=== PATIENT | female | born 1955 | race Caucasian/White ===

== ENCOUNTER → 2017-02-13 | Outpatient (CLI) | payer OTHER ==
[2017-02-13 15:33] LABS: ALBUMIN 3.5 GM/DL (3.2-5.2); ALKALINE PHOSPHATASE 77 U/L (45-117); ALT/SGPT 62 U/L (12-78); ANION GAP 7 MEQ/L (8-16); AST/SGOT 28 U/L (15-37); BILIRUBIN,TOTAL 0.7 MG/DL (0.2-1.0); BLOOD UREA NITROGEN 19 MG/DL (7-18); CALCIUM LEVEL 8.5 MG/DL (8.8-10.2); CARBON DIOXIDE LEVEL 26 MEQ/L (21-32); CHLORIDE LEVEL 107 MEQ/L (98-107); CHOLESTEROL LEVEL 207 MG/DL (<200); CREATININE FOR GFR 0.88 MG/DL (0.55-1.02); GLOMERULAR FILTRATION RATE > 60.0 (>45); GLUCOSE, FASTING 106 MG/DL (80-110); POTASSIUM SERUM 4.4 MEQ/L (3.5-5.1); SODIUM LEVEL 140 MEQ/L (136-145); TRIGLYCERIDES LEVEL 60 MG/DL (<150)
== END ==
LOC: M WUC 08:56
PROVIDERS: ATTEND Emergency Medicine
DX: Z00.00 Encounter for general adult medical examination without abnormal findings (principal); E78.2 Mixed hyperlipidemia

== ENCOUNTER 2017-10-17 09:04 | Day surgery (SDC) | payer OTHER ==
[2017-10-17] MEDS: LR 1,000 ML IV ×3 (10:00→16:30)
[2017-10-17] MEDS ORDERED: GLYCOPYRROLATE INJ 0.2 MG/ML 2 ML VIAL As Ordered (11:13)
[2017-10-17] MEDS ORDERED: NEOSTIGMINE 10 MG/10 ML VIAL (J2710) As Ordered (11:13)
[2017-10-17] MEDS ORDERED: LIDOCAINE 2% INJ 100 MG/5 ML SDV (FOR ANES.) As Ordered (11:13)
[2017-10-17] MEDS ORDERED: ONDANSETRON 4MG/2ML VIAL (J2405) As Ordered ×2 (11:13→16:15)
[2017-10-17] MEDS ORDERED: LIDOCAINE 2% JELLY 30 ML As Ordered (11:13)
[2017-10-17] MEDS ORDERED: ROCURONIUM BROMIDE 50 MG/5 ML VIAL As Ordered (11:13)
[2017-10-17] MEDS ORDERED: KETOROLAC 60 MG/2 ML VIAL (J1885) As Ordered (11:13)
[2017-10-17] MEDS ORDERED: PROPOFOL 200 MG/20 ML VIAL As Ordered (11:13)
[2017-10-17] MEDS ORDERED: dexameTHASONE 4 MG/ML 1ML VIAL (J1100) As Ordered (11:13)
[2017-10-17] MEDS ORDERED: MIDAZOLAM INJ 2 MG/2 ML VIAL (J2250) As Ordered (11:14)
[2017-10-17] MEDS ORDERED: fentaNYL 100 MCG/2 ML INJECTION (J3010) As Ordered ×2 (11:14→13:47)
[2017-10-17] MEDS ORDERED: LABETALOL HCL 100 MG/20 ML VIAL As Ordered (13:29)
[2017-10-17] MEDS ORDERED: HYDROmorphone HCL 2 MG/ML 1ML VIAL (J1170) As Ordered (14:39)
[2017-10-17] MEDS: BUPIVACAINE HCL 0.5% 10 ML VIAL As Ordered (15:40)
[2017-10-17] MEDS: ONDANSETRON 4MG/2ML VIAL (J2405) IV (16:21)
[2017-10-17] MEDS ORDERED: fentaNYL 100 MCG/2 ML INJECTION (J3010) IV (16:30)
[2017-10-17] MEDS ORDERED: HYDROmorphone HCL 1 MG/ML SYRINGE (J1170) IV (16:30)
[2017-10-17] MEDS ORDERED: PERCOCET 5MG/325MG TAB PO (16:30)
[2017-10-17] MEDS: PERCOCET 5MG/325MG TAB PO (23:29)
[2017-10-18] MEDS: LR 1,000 ML IV ×2 (04:23→13:23)
[2017-10-18] MEDS: PERCOCET 5MG/325MG TAB PO ×3 (06:10→17:10)
== END 2017-10-18 18:55 | disposition home or self-care (01) ==
LOC: M SDC 10-18 18:55 → M MSPAV 18:41
DX: M20.41 Other hammer toe(s) (acquired), right foot (principal); M77.41 Metatarsalgia, right foot; K21.9 Gastro-esophageal reflux disease without esophagitis; R06.83 Snoring; Z79.899 Other long term (current) drug therapy; Z79.82 Long term (current) use of aspirin; Z78.0 Asymptomatic menopausal state
CPT/HCPCS: 28285

== ENCOUNTER → 2018-01-16 | Outpatient (CLI) | payer OTHER ==
[2018-01-16 19:46] LABS: HEMATOCRIT 41.8 % (36.0-47.0); MEAN CORPUSCULAR HEMOGLOBIN 29.4 pg (27.0-33.0); MEAN CORPUSCULAR HGB CONC 33.5 g/dl (32.0-36.5); MEAN CORPUSCULAR VOLUME 87.6 fl (80.0-96.0); PLATELET COUNT, AUTOMATED 285 10^3/uL (150-450); RED BLOOD COUNT 4.77 10^6/uL (4.00-5.40); RED CELL DISTRIBUTION WIDTH 12.7 % (11.5-14.5)
[2018-01-16 20:14] LABS: C REACTIVE PROTEIN QUANTITATIV 0.67 MG/DL (0.00-0.30)
[2018-01-16 21:15] LABS: ERYTHROCYTE SEDIMENTATION RATE 6 mm/hr (0-30)
== END ==
LOC: M WUC 17:10
DX: Z47.89 Encounter for other orthopedic aftercare (principal)
CPT/HCPCS: 86140

== ENCOUNTER → 2018-04-03 | Outpatient (CLI) | payer OTHER ==
[2018-04-03 13:28] LABS: ALKALINE PHOSPHATASE 90 U/L (45-117); ALT/SGPT 65 U/L (12-78); ANION GAP 9 MEQ/L (8-16); AST/SGOT 27 U/L (7-37); BLOOD UREA NITROGEN 14 MG/DL (7-18); CALCIUM LEVEL 8.6 MG/DL (8.8-10.2); CARBON DIOXIDE LEVEL 25 MEQ/L (21-32); CHLORIDE LEVEL 107 MEQ/L (98-107); CREATININE FOR GFR 0.75 MG/DL (0.55-1.30); GLOMERULAR FILTRATION RATE > 60.0 (>45); GLUCOSE, FASTING 113 MG/DL (70-100); POTASSIUM SERUM 4.3 MEQ/L (3.5-5.1); SODIUM LEVEL 141 MEQ/L (136-145)
[2018-04-03 13:29] LABS: ALBUMIN 3.7 GM/DL (3.2-5.2); ALBUMIN/GLOBULIN RATIO 1.03 (1.00-1.93); BILIRUBIN,TOTAL 0.7 MG/DL (0.2-1.0); CHOLESTEROL LEVEL 208 MG/DL (<200); CHOLESTEROL RISK RATIO 3.525 (<5); HDL CHOLESTEROL 59 MG/DL (>40); LDL CHOLESTEROL 131.8 MG/DL (<100); NON-HDL-C 149 MG/DL; TOTAL PROTEIN 7.3 GM/DL (6.4-8.2); TRIGLYCERIDES LEVEL 86 MG/DL (<150)
== END ==
LOC: M WUC 10:10
DX: E78.2 Mixed hyperlipidemia (principal); E66.01 Morbid (severe) obesity due to excess calories
CPT/HCPCS: 84443

== ENCOUNTER → 2019-10-05 | Outpatient (CLI) | payer MEDICARE, OTHER ==
[~2019-10-05] MED LIST: ASPI81TA26 PO; BUPR15TA PO; CALC500T49 PO; MEGA1CAP3 PO; PANT40TA3 PO
[2019-10-05 19:04] LABS: BASO % 0.7 % (0.0-1.0); EOS # 0.1 10^3/uL (0.0-0.5); EOS % 1.7 % (0.0-3.0); HEMATOCRIT 44.3 % (36.0-47.0); HEMOGLOBIN 14.5 g/dl (12.0-15.5); LYMPH # 1.5 10^3/uL (1.5-5.0); LYMPH % 26.5 % (24.0-44.0); MEAN CORPUSCULAR HEMOGLOBIN 29.9 pg (27.0-33.0); MEAN CORPUSCULAR HGB CONC 32.7 g/dl (32.0-36.5); MEAN CORPUSCULAR VOLUME 91.3 fl (80.0-96.0); MONO # 0.6 10^3/uL (0.0-0.8); NEUTROPHILS # 3.5 10^3/uL (1.5-8.5); NEUTROPHILS % 60.8 % (36.0-66.0); PLATELET COUNT, AUTOMATED 266 10^3/uL (150-450); RED BLOOD COUNT 4.85 10^6/uL (4.00-5.40); WHITE BLOOD COUNT 5.8 10^3/uL (4.0-10.0)
[2019-10-05 19:20] LABS: HEMOGLOBIN A1c 5.7 %
[2019-10-05 19:29] LABS: ALBUMIN 3.7 GM/DL (3.2-5.2); ALT/SGPT 59 U/L (12-78); BILIRUBIN,TOTAL 0.7 MG/DL (0.2-1.0); BLOOD UREA NITROGEN 13 MG/DL (7-18); CALCIUM LEVEL 8.7 MG/DL (8.8-10.2); CARBON DIOXIDE LEVEL 26 MEQ/L (21-32); CHLORIDE LEVEL 104 MEQ/L (98-107); CHOLESTEROL LEVEL 207 MG/DL (<200); CHOLESTEROL RISK RATIO 3.631 (<5); CREATININE FOR GFR 0.74 MG/DL (0.55-1.30); GLOMERULAR FILTRATION RATE > 60.0 (>45); GLUCOSE, FASTING 93 MG/DL (70-100); HDL CHOLESTEROL 57 MG/DL (>40); LDL CHOLESTEROL 137 MG/DL (<100); NON-HDL-C 150 MG/DL; POTASSIUM SERUM 4.6 MEQ/L (3.5-5.1); SODIUM LEVEL 137 MEQ/L (136-145); TOTAL PROTEIN 7.1 GM/DL (6.4-8.2); TRIGLYCERIDES LEVEL 65 MG/DL (<150)
== END ==
LOC: M WUC 11:06
PROVIDERS: ATTEND Physician Assistant
DX: E78.2 Mixed hyperlipidemia (principal); R73.01 Impaired fasting glucose; R53.83 Other fatigue

== ENCOUNTER → 2020-11-11 | Outpatient (CLI) | payer MEDICARE, OTHER ==
[~2020-11-11] MED LIST changes: +PANT40TA29 PO; -PANT40TA3 PO
[2020-11-11 12:10] LABS: ALBUMIN 3.7 GM/DL (3.2-5.2); ALT/SGPT 33 U/L (12-78); BILIRUBIN,TOTAL 0.7 MG/DL (0.2-1.0); BLOOD UREA NITROGEN 17 MG/DL (7-18); CALCIUM LEVEL 9.2 MG/DL (8.8-10.2); CARBON DIOXIDE LEVEL 29 MEQ/L (21-32); CHLORIDE LEVEL 105 MEQ/L (98-107); CHOLESTEROL LEVEL 224 MG/DL (<200); CREATININE FOR GFR 0.83 MG/DL (0.55-1.30); FREE T4 0.89 NG/DL (0.76-1.46); GLOMERULAR FILTRATION RATE > 60.0 (>45); GLUCOSE, FASTING 103 MG/DL (70-100); HDL CHOLESTEROL 70 MG/DL (>40); LDL CHOLESTEROL 141 MG/DL (<100); NON-HDL-C 154 MG/DL; POTASSIUM SERUM 4.2 MEQ/L (3.5-5.1); SODIUM LEVEL 138 MEQ/L (136-145); TOTAL PROTEIN 7.5 GM/DL (6.4-8.2); TRIGLYCERIDES LEVEL 67 MG/DL (<150)
[2020-11-11 12:13] LABS: TOTAL 25(OH) VITAMIN D 45.2 NG/ML (30.0-100.0)
[2020-11-11 12:41] LABS: HEMOGLOBIN A1c 5.5 %
== END ==
LOC: M WUC 08:26
PROVIDERS: ATTEND Nurse Practitioner Family
DX: Z00.00 Encounter for general adult medical examination without abnormal findings (principal); Z79.899 Other long term (current) drug therapy

== ENCOUNTER → 2022-07-09 | Outpatient (CLI) | payer MEDICARE, OTHER | LOC: M LABSMTC 10:49 | DX: Z01.812 Encounter for preprocedural laboratory examination (principal); Z20.822 Contact with and (suspected) exposure to COVID-19 ==

== ENCOUNTER 2024-03-23 10:42 | Day surgery (SDC) | payer MEDICARE, OTHER ==
[~2024-03-23] VITALS: Ht 170.2 cm; Wt 151.5 kg
[~2024-03-23 10:42] MED LIST changes: +CALC600T36 PO; +LR 1,000 ML IV SCH; +MIDAZOLAM INJ 2MG/2ML VIAL As Ordered ONE; +VITA100093 PO; +WELLTAB38 PO; +fentaNYL 100 MCG/2 ML INJECTION As Ordered ONE
[2024-03-23] MEDS: ATROPINE SULFATE 1% OPHTH SOLN 2ML BTL OD SCH (11:21)
[2024-03-23] MEDS: PHENYLEPHRINE 2.5% OPHTH SOL 2ML OD SCH (11:21)
[2024-03-23] MEDS: TETRACAINE 0.5% OPHTH SOLN 4ML OD SCH (11:21)
[2024-03-23] MEDS: FLURBIPROFEN 0.03% OPHTH SOLN 2.5 ML OD SCH (11:21)
[2024-03-23] MEDS: LIDOCAINE 1% SDV 5ML VIAL As Ordered ONE (12:56)
[2024-03-23] MEDS: CEFUROXIME 1MG/0.1ML INTRACAMERAL INJ As Ordered ONE (13:07)
[2024-03-23 13:15] VITALS: BP 123/82; TEMP 98; O2SAT 94
== END 2024-03-23 13:50 | disposition home or self-care (01) ==
LOC: M SDC 10:42
PROVIDERS: ATTEND Ophthalmology
DX: H25.11 Age-related nuclear cataract, right eye (principal); K21.9 Gastro-esophageal reflux disease without esophagitis; Z79.82 Long term (current) use of aspirin; Z79.899 Other long term (current) drug therapy
CPT/HCPCS: 66984; J0697; J2250; J3010; V2632

== ENCOUNTER → 2024-07-15 | Outpatient (CLI) | payer MEDICARE, OTHER ==
[~2024-07-15] MED LIST changes: -LR 1,000 ML IV SCH; -MIDAZOLAM INJ 2MG/2ML VIAL As Ordered ONE; -fentaNYL 100 MCG/2 ML INJECTION As Ordered ONE
== END ==
LOC: M RAD 07:51
PROVIDERS: ATTEND Internal Medicine
DX: R51.9 Headache, unspecified (principal)